=== PATIENT | female | born 1955 | race Caucasian/White ===

== ENCOUNTER → 2020-09-13 | Outpatient (CLI) | payer OTHER ==
[~2020-09-13] MED LIST: ATIVAN1 MG PO; CYANOCOBAL1000 MCG/1 INJ; ESTRACE1 MG PO; HYDROCHLOROTHIA25 MG PO; KLOR-CON20 MEQ PO; LEXAPRO10 MG PO; MAGOX 400400 MG PO; MOBIC15 MG PO; NORCO 5-325 TA1 EACH PO; OMEPRAZOLE20 MG PO; ROBAXIN-750750 MG PO; SYNTHROID75 MCG PO; VITAMIN D250000 UNIT PO
== END ==
LOC: KOH-I 14:54
DX: M54.2 Cervicalgia (principal); M25.511 Pain in right shoulder; W19.XXXA Unspecified fall, initial encounter; M47.812 Spondylosis without myelopathy or radiculopathy, cervical region
CPT/HCPCS: 72040; 73030

== ENCOUNTER → 2020-11-16 | Outpatient (CLI) | payer OTHER | LOC: RAD 16:17 | DX: M25.551 Pain in right hip (principal); M16.11 Unilateral primary osteoarthritis, right hip | CPT/HCPCS: 73502 ==

== ENCOUNTER → 2021-06-06 | Outpatient (CLI) | payer MEDICARE | LOC: LAB 15:32 | DX: K57.32 Diverticulitis of large intestine without perforation or abscess without bleeding (principal); R10.9 Unspecified abdominal pain; D64.9 Anemia, unspecified | CPT/HCPCS: 36415; 82565; 84520 ==

== ENCOUNTER → 2021-06-07 | Outpatient (CLI) | payer MEDICARE | LOC: CT 10:19 | DX: R10.13 Epigastric pain (principal); D64.9 Anemia, unspecified; K57.32 Diverticulitis of large intestine without perforation or abscess without bleeding | CPT/HCPCS: Q9967 ==

== ENCOUNTER → 2021-10-16 | Outpatient (CLI) | payer MEDICARE | LOC: ECHO 10:30 | DX: Z01.810 Encounter for preprocedural cardiovascular examination (principal); R53.83 Other fatigue; I51.7 Cardiomegaly | CPT/HCPCS: ECHO; 93306 ==